=== PATIENT | male | born 1945 | race Caucasian/White ===

== ENCOUNTER 2021-04-14 06:01 | Observation (INO) ==
[~2021-04-14 06:01] MED LIST: ASPIRIN 325 MG TABLET PO ONE; DIAZEPAM 5 MG TABLET PO ONE; MAGNESIUM SULF RIDER 2 GM/50 ML PREMIX IV PRN; POTASSIUM CHLORIDE RIDER 10 MEQ/100 ML PREMIX IV PRN; diphenhydrAMINE CAP 50 MG CAPSULE PO ONE
[2021-04-14] MEDS ORDERED: DIAZEPAM 5 MG TABLET ONE (06:49)
[2021-04-14] MEDS ORDERED: ASPIRIN 325 MG TABLET ONE (06:49)
[2021-04-14] MEDS ORDERED: diphenhydrAMINE CAP 50 MG CAPSULE ONE (06:49)
[2021-04-14] MEDS: SODIUM CHLORIDE 0.9% 1,000 ML IV SCH ×2 (07:05→17:08)
[2021-04-14] MEDS ORDERED: LIDOCAINE 1% 20 ML VIAL ONE (07:32)
[2021-04-14] MEDS ORDERED: HEPARIN/NACL 0.9% 2 UNITS/ML 2,000 UNIT/1,000 ML BAG IV ONE (07:32)
[2021-04-14] MEDS ORDERED: MIDAZOLAM 2 MG/2 ML VIAL ONE (07:43)
[2021-04-14] MEDS ORDERED: HYDROmorphone 2 MG/1 ML VIAL ONE (07:43)
[2021-04-14] MEDS ORDERED: diphenhydrAMINE 50 MG/1 ML VIAL ONE (08:07)
[2021-04-14] MEDS ORDERED: BIVALIRUDIN 250 MG VIAL IV ONE ×2 (08:23→09:29)
[2021-04-14] MEDS ORDERED: HEPARIN/NACL 0.9% 2 UNITS/ML 1,000 UNIT/500 ML BAG IV ONE (08:48)
[2021-04-14] MEDS ORDERED: TICAGRELOR 90 MG TABLET ONE (09:42)
[2021-04-14] MEDS ORDERED: ONDANSETRON 4 MG/2 ML VIAL IV PRN (09:50)
[2021-04-14] MEDS ORDERED: ZALEPLON 5 MG CAPSULE PO PRN (09:50)
[2021-04-14] MEDS ORDERED: NITROGLYCERIN SL 0.4 MG TABLET SL PRN (09:50)
[2021-04-14 10:58] LABS: Calcium 8.3 MG/DL (8.5-10.1); Potassium 4.5 MMOL/L (3.5-5.1)
[2021-04-14] MEDS ORDERED: ROSUVASTATIN 20 MG TABLET PO SCH (21:00)
[2021-04-14] MEDS: TICAGRELOR 90 MG TABLET PO SCH (21:02)
[2021-04-15] MEDS: SODIUM CHLORIDE 0.9% 1,000 ML IV SCH ×2 (01:48→13:20)
[2021-04-15 06:37] LABS: Basophils # 0.1 10*3/uL (0.0-0.2); Basophils % 0.8 % (0.0-0.8); Eosinophils # 0.2 10*3/uL (0.0-0.87); Eosinophils % 3.9 % (0.00-10.9); Hematocrit 37.8 VOL% (42.0-52.0); Hemoglobin 13.1 GM/DL (14.0-18.0); Immature Granulocytes % 0.2 %; Immature Granulocytes Absolute 0.01 #; Lymphocytes # 1.8 10*3/uL (1.4-4.0); Lymphocytes % 28.8 % (21.2-54.2); Mean Corpuscular HGB Conc 34.7 GM/DL (32-36); Mean Corpuscular Volume 96.7 FL (87-102); Mean Platelet Volume 10.7 FL (9.6-12.0); Monocytes % 13.5 % (1.7-12.7); Neutrophils % 52.8 % (38.7-73.9); Platelet Count 147 T/CUMM (130-400); Red Blood Count 3.91 MC/CUMM (3.8-5.5); Red Cell Distribution Width 12.2 % (9.3-17.3); White Blood Count 6.2 T/CUMM (4-12)
[2021-04-15] MEDS ORDERED: LABETALOL 20 MG/4 ML SYRINGE IV ONE (07:35)
[2021-04-15] MEDS ORDERED: METOPROLOL SUCCINATE XL 50 MG TABLET PO SCH (09:00)
[2021-04-15] MEDS ORDERED: ASPIRIN EC 81 MG TABLET PO SCH (09:00)
[2021-04-15] MEDS: TICAGRELOR 90 MG TABLET PO SCH (09:21)
[2021-04-15 17:26] VITALS: BP 181/78
[2021-04-15] MEDS ORDERED: LOSARTAN 25 MG TABLET PO ONE (18:29)
[2021-04-16] MEDS ORDERED: LOSARTAN 25 MG TABLET PO SCH (09:00)
== END 2021-04-15 19:25 | disposition home or self-care (01) ==
LOC: N.CL 06:01 → N.TELEN 11:12 → INTOOBSV 04-15 10:22
PROVIDERS: ADMIT Internal Medicine Cardiovascular Disease; ATTEND Internal Medicine Cardiovascular Disease
PROC: CLCCHCL (ICD-10-PCS; 2021-04-14 07:45)